=== PATIENT | female | born 1955 | race Caucasian/White ===

== ENCOUNTER 2019-06-11 15:17 | Inpatient (IN) | payer OTHER ==
[2019-06-11 15:30] VITALS: BP 131/85
--- NOTE | 2019-06-11 15:30 | NUR ---
Direct Admit Note ANJELICA RODRIGUEZ admitted to Telemetry unit as a direct admit. Patient oriented to Yazmin Young, primary RN, unit, room, bed, and unit policies regarding patient care and visiting hours. Patient now on continuous telemetry monitoring, tele box #30 and telemetry reading on arrival to unit is [id number]. Patient placed on bedside oxygen, weighed by bed scale and encouraged to call if they need something. All questions and concerns addressed, patient verbalized understanding. Dr. Saul notified of patients arrival and admit orders received.
[2019-06-11 17:00] VITALS: BP 131/85
[2019-06-11] MEDS ORDERED: NITROGLYCERIN 0.4 MG SL TAB SL PRN (17:00)
[2019-06-11] MEDS ORDERED: MORPHINE SULF INJ 2 MG/ML SYRINGE 1ML IV PRN ×2 (17:00→17:15)
[2019-06-11] MEDS ORDERED: D5W/SOD CHL 0.45%/KCL 20MEQ 1,000 ML IV SCH (17:15)
[2019-06-11] MEDS ORDERED: EXEM25TA4 PO (19:05)
[2019-06-11] MEDS ORDERED: BUPR150T6 PO (19:05)
[2019-06-11 19:21] LABS: Calcium 8.6 mg/dL (8.5-10.1); Potassium 3.7 mmol/L (3.5-5.1)
[2019-06-11 19:23] LABS: BUN/Creatinine Ratio 21.2
[2019-06-11 22:00] VITALS: BP 131/81
[2019-06-11] MEDS: SODIUM CHLOR 0.9% PF (SALINE LOCK) 10ML VIAL/SYR IV SCH (22:00)
[2019-06-11 22:45] LABS: Basophils # (auto) 0 uL; Basophils % (auto) 0.7 % (0.0-2.0); Eosinophils # (auto) 0.1 uL; Eosinophils % (auto) 1.8 % (0.0-7.0); Hematocrit 28.9 % (36.0-46.0); Hemoglobin 9.1 g/dL (12.2-16.2); Lymphocytes % (auto) 17.3 % (10.0-50.0); Mean Corpuscular Hemoglobin 25.1 pg (28.0-32.0); Mean Corpuscular Hgb Conc. 31.6 g/dL (32.0-36.0); Mean Corpuscular Volume 79.5 fL (80.0-100.0); Monocytes # (auto) 0.6 uL; Monocytes % (auto) 9.3 % (0.0-12.0); Neutrophils # (auto) 4.3 uL; Neutrophils % (auto) 70.9 % (37.0-80.0); Platelet Count (auto) 313 10^3/uL (140-450); Red Blood Cells 3.63 10^6/uL (4.0-5.20); Red Cell Distribution Width 17.9 % (11.8-14.3)
[2019-06-11 23:05] LABS: INR 1.03 (0.9-1.15); Partial Thromboplastin Time 24.2 sec (23.64-32.05)
[2019-06-11 23:11] LABS: Free T3 3.06 pg/mL (2.3-4.2); Free T4 (Free Thyroxine) 1.25 ng/dL (0.89-1.76)
[2019-06-11 23:21] LABS: Folate (Folic Acid) 14.43 ng/mL (5.38-24)
[2019-06-12 05:00] VITALS: BP 114/74
[2019-06-12] MEDS: SODIUM CHLOR 0.9% PF (SALINE LOCK) 10ML VIAL/SYR IV SCH (05:59)
--- NOTE | 2019-06-12 07:20 | NUR ---
Opening Shift Note Assumed care of patient, awake and alert . No S/S of distress/SOB or pain. Instructed on POC and to call for assist PRN, will continue to monitor for changes Q1hr and PRN. Bed locked in lowest position with two side rails up and call light in reach.
[2019-06-12 08:00] VITALS: BP 134/79
[2019-06-12] MEDS ORDERED: SODIUM CHLORIDE LOCK 10 ML ONE (08:17)
[2019-06-12] MEDS ORDERED: LIDOCAINE VISCOUS 2% 15ML UD ONE (08:18)
[2019-06-12] MEDS ORDERED: diphenhdrAMINE HCL 50 MG/1 ML VL ONE (08:18)
[2019-06-12 09:00] VITALS: BP 134/79
[2019-06-12] MEDS: MIDAZOLAM HCL 5 MG/ML-1ML VIAL ONE ×3 (10:31→10:43)
[2019-06-12] MEDS: fentaNYL CITRATE 100 MCG/2 ML VL ONE ×3 (10:31→10:43)
[2019-06-12] MEDS ORDERED: SUCRALFATE 1 GM/10 ML ORAL SUSP PO SCH (11:30)
[2019-06-12 12:30] VITALS: BP 114/75
[2019-06-12 13:34] VITALS: BP 134/79
--- NOTE | 2019-06-12 14:29 | NUR ---
Discharge instructions given as ordered. Encourage to follow up with PMD as instructed. All questions and concerns addressed. Patient verbalized understanding. Medication reconciliation form completed and copy given to patient.No Home medications held in Pharmacy and none to be returned to patient, and no needed vaccines given. IV removed with catheter intact, Telemetry unit returned to ICU. Patient ambulated to vehicle with all personal belongings, accompanied by staff and family member. No distress noted at time of departure.
[2019-06-12] MEDS ORDERED: PANTOPRAZOLE 40 MG TAB PO SCH (22:00)
== END 2019-06-12 14:30 | disposition home or self-care (01) | DRG 392 ==
LOC: TELE-CENTR 15:17
PROVIDERS: ADMIT Internal Medicine; ATTEND Internal Medicine
PROC: 0D748ZZ Dilation of Esophagogastric Junction, Via Natural or Artificial Opening Endoscopic (ICD-10-PCS; principal; 2019-06-12 10:28)
DX: K22.2 Esophageal obstruction (principal); R13.10 Dysphagia, unspecified; K44.9 Diaphragmatic hernia without obstruction or gangrene; D50.9 Iron deficiency anemia, unspecified; Z85.3 Personal history of malignant neoplasm of breast
CPT/HCPCS: 36415; 71045; 80048; 82607; 82746; 84439; 84481; 85025; 85610; 85730; G0378; J2250